=== PATIENT | female | born 1970 | race Hispanic/Latino ===

== ENCOUNTER 2019-02-06 21:37 | Emergency (ER) | payer MEDICAID ==
[2019-02-06 21:48] VITALS: BP 110/74; PULSE 81; RESP 18; TEMP 97.8; O2SAT 98
--- NOTE | 2019-02-06 22:28 | ED PDOC ---
Arrival/HPI - General Chief Complaint: Medical Clearance Time Seen by Provider: 02/06/19 21:46 Historian: Patient - History of Present Illness Narrative History of Present Illness (Text): 02/06/19 22:21 48-year-old female presents today for prophylaxis for meningitis exposure. Patient states her [id number] was diagnosed with bacterial meningitis and she was told to come to the hospital to get Cipro. Patient denies any complaints. Past Medical History - Provider Review Nursing Documentation Reviewed: Yes - Travel History Have you recently traveled outside [place] w/in the past 3 mons?: No - Infectious Disease Hx of Infectious Diseases: None - Psychiatric Hx Substance Use: No - Surgical History Hx Section: Yes (x1) - Anesthesia Hx Anesthesia: No Family/Social History - Physician Review Nursing Documentation Reviewed: Yes Family/Social History: Unknown Family HX Smoking Status: Never Smoked Hx Alcohol Use: No Hx Substance Use: No Allergies/Home Meds Allergies/Adverse Reactions: Allergies No Known Allergies Allergy (Verified 02/06/19 21:51) Home Medications: Home Meds Medication Instructions Recorded Confirmed No Known Home Med 02/06/19 02/06/19 Review of Systems - Review of Systems Constitutional: absent: Fatigue, Fevers Respiratory: absent: SOB, Cough Cardiovascular: absent: Chest Pain, Palpitations Gastrointestinal: absent: Abdominal Pain, Nausea, Vomiting Musculoskeletal: absent: Arthralgias Skin: absent: Rash, Pruritis Neurological: absent: Headache, Dizziness Psychiatric: absent: Anxiety, Depression, Suicidal Ideation Physical Exam Vital Signs Reviewed: Yes Vital Signs Temp Pulse Resp BP Pulse Ox 02/06/19 21:48 97.8 F 81 18 110/74 98 Temperature: Afebrile Blood Pressure: Normal Pulse: Regular Respiratory Rate: Normal Appearance: Positive for: Well-Appearing, Non-Toxic, Comfortable Pain Distress: None Mental Status: Positive for: Alert and Oriented X 3 - Systems Exam Head: Present: Atraumatic Mouth: Present: Moist Mucous Membranes Neck: Present: Normal Range of Motion Respiratory/Chest: Present: Clear to Auscultation, Good Air Exchange. No: Respiratory Distress, Accessory Muscle Use Cardiovascular: Present: Regular Rate and Rhythm Skin: Present: Warm, Dry, Normal Color. No: Rashes Psychiatric: Present: Alert, Oriented x 3 Medical Decision Making ED Course and Treatment: 02/06/19 22:35 48-year-old female presents today for meningitis exposure prophylaxis. She denies any complaints. Her vital signs are stable. She was at bedside today with her [id number] who was diagnosed with bacterial meningitis. Cipro 500 given p.o. Patient was advised to follow-up with a primary care physician within the next 2 days and return if symptoms worsen persist or if any concerning symptoms develop. Impression: Meningitis exposure Follow-up with primary care physician within the next 2 days Return immediately if symptoms worsen persist or if new concerning symptoms develop - Medication Orders Current Medication Orders: Discontinued Medications Ciprofloxacin (Cipro) 500 mg PO ONCE STA; Protocol Stop: 02/06/19 22:09 Disposition/Present on Arrival - Present on Arrival Any Indicators Present on Arrival: No History of DVT/PE: No History of Uncontrolled Diabetes: No Urinary Catheter: No History of Decub. Ulcer: No History Surgical Site Infection Following: None - Disposition Have Diagnosis and Disposition been Completed?: Yes Diagnosis: Meningitis exposure Disposition: HOME/ ROUTINE Disposition Time: 22:19 Patient Plan: Discharge Patient Problems: Current Active Problems Problem Status Onset Meningitis exposure Acute Condition: GOOD Additional Instructions: Follow up with the primary care physician return immediately if any concerning symptoms develop. Referrals: Ami Mccracken MD [Medical Doctor] - Follow up with primary [facility] [Outside] - Follow up with primary
== END 2019-02-06 22:36 | disposition home or self-care (01) ==
LOC: ED 21:37
DX: Z20.811 Contact with and (suspected) exposure to meningococcus (principal)